=== PATIENT | female | born 1990 | race Caucasian/White ===

== ENCOUNTER 2018-03-06 12:35 | Emergency (ER) | payer SELFPAY ==
[~2018-03-06] VITALS: Ht 165.1 cm; Wt 59.0 kg
--- NOTE | 2018-03-06 12:41 | NUR ---
Patient is resting comfortably on gurney, calm & cooperative@this time.
--- NOTE | 2018-03-06 12:50 | NUR ---
Patient is intermittently tearful & anxious but directable, respiration:easy. Patient's co-worker is at bedside.
--- NOTE | 2018-03-06 13:16 | NUR ---
Patient's co-workers x2 are@bedside. Patient is now more agitated. Security assistance was called. Patient's mother is coming around 1530. notified.
[2018-03-06] MEDS ORDERED: HALOPERIDOL LACTATE 5 MG/1 ML VIAL IM ONE (13:30)
[2018-03-06] MEDS ORDERED: LORAZEPAM 2 MG/1 ML VIAL IM ONE (13:30)
[2018-03-06] MEDS ORDERED: LORAZEPAM 2 MG/1 ML VIAL ONE (13:39)
[2018-03-06] MEDS ORDERED: HALOPERIDOL LACTATE 5 MG/1 ML VIAL ONE (13:41)
[2018-03-06 13:44] LABS: *BILIRUBIN,URIN NEGATIVE (NEGATIVE); *BLOOD, URINE Trace-lysed (NEGATIVE); *CLARITY,URINE CLEAR (CLEAR); *COLOR,URINE LIGHT YELLOW (YELLOW); *KETONES,URINE NEGATIVE (NEGATIVE); *PROTEIN,URINE NEGATIVE (NEGATIVE); *UROBILINOGEN,URINE 0.2 E.U./dl (NORMAL); LEUKOCYTE ESTERASE ,URINE NEGATIVE (NEGATIVE); NITRITE, URINE NEGATIVE (NEGATIVE); UGLUCOSE NEGATIVE (NEGATIVE)
[2018-03-06 13:50] LABS: *AMPHETAMINE, URINE NEGATIVE (NEGATIVE); *BARBITURATE, URINE NEGATIVE (NEGATIVE); *CANNABINOID, URINE POSITIVE (NEGATIVE); *COCCAINE, URINE NEGATIVE (NEGATIVE); *OPIATE, URINE NEGATIVE (NEGATIVE); *PHENCYCLIDINE SCREEN,URINE NEGATIVE (NEGATIVE)
[2018-03-06 13:56] LABS: BACTERIA,URINE NONE SEEN /HPF (NONE SEEN); SQUAMOUS EPITHELIAL CELL,UR FEW /HPF (NONE SEEN); WBC,URINE 0-3 /HPF (0-3)
--- NOTE | 2018-03-06 14:11 | NUR ---
Patient's mother is at bedside, monitored closely
[2018-03-06 14:36] LABS: BASOPHILS # (AUTO) 0.1 K/uL (0.0-8.0); BASOPHILS % (AUTO) 0.6 % (0.0-2.0); EOSINOPHILS % (AUTO) 0.1 % (0.0-7.0); HEMATOCRIT 44.4 % (31.2-41.9); HEMOGLOBIN 15.6 g/dL (10.9-14.3); LYMPHOCYTES # (AUTO) 1.9 K/uL (20.0-40.0); LYMPHOCYTES % (AUTO) 20.5 % (20.5-51.5); MEAN CORPUSCULAR HEMOGLOBIN 32.4 uug (24.7-32.8); MEAN CORPUSCULAR HGB CONC 35 g/dL (32.3-35.6); MEAN CORPUSCULAR VOLUME 92.4 fL (75.5-95.3); MONOCYTES # (AUTO) 0.4 K/uL (2.0-10.0); MONOCYTES % (AUTO) 4.2 % (0.0-11.0); NEUTROPHILS # (AUTO) 6.9 K/uL (1.8-8.9); NEUTROPHILS % (AUTO) 74.6 % (38.5-71.5); PLATELET COUNT (AUTO) 386 K/uL (179-408); RED BLOOD CELL COUNT(AUTO) 4.81 MIL/uL (3.63-4.92); WHITE BLOOD COUNT (AUTO) 9.3 K/uL (3.8-11.8)
[2018-03-06 14:52] LABS: CREATININE 0.9 mg/dL (0.6-1.3)
[2018-03-06 14:58] LABS: POTASSIUM 2.7 mmol/L (3.5-5.1)
[2018-03-06] MEDS ORDERED: POTASSIUM CHLORIDE 20 MEQ TAB.PRT.SR PO ONE (15:00)
[2018-03-06] MEDS ORDERED: POTASSIUM CHLORIDE 20 MEQ TAB.PRT.SR ONE (15:09)
--- NOTE | 2018-03-06 15:22 | NUR ---
Restraints are off since . Patient is resting comfortably on gureny with eyes closed. Patient's boyfriend is at bedside.
--- NOTE | 2018-03-06 15:34 | NUR ---
2 parents and the boyfriend are here. Patient discharged to home in stable conditon by MD. Written and verbal after care instructions given to family and boyfriend. Patient's parents and boyfriend verbalized understanding of instructions.
[2018-03-06 15:37] LABS: *URINE HCG, QUAL NEGATIVE (NEGATIVE)
== END 2018-03-06 15:41 | disposition home or self-care (01) ==
LOC: EDBD 12:35 → ER 12:35
DX: F10.129 Alcohol abuse with intoxication, unspecified (principal); F12.90 Cannabis use, unspecified, uncomplicated
CPT/HCPCS: 36415; 80048; 80307; 81001; 84703; 85025; 93005; 96372 ×2; 99285; A4663; G0480; J1630; J2060